=== PATIENT | male | born 1965 | race Caucasian/White ===

== ENCOUNTER → 2016-06-01 | Day surgery (SDC) | payer OTHER ==
--- NOTE | 2016-05-31 16:32 | Pre-Procedure Note/Attestation ---
Pre-Procedure Note/Attestation Complete Prior to Procedure Planned Procedure: bilateral Procedure Narrative: Septoplasty Submucous resection bilateral inferior turbinates. Indications for Procedure Pre-Operative Diagnosis: Nasal septal deviation Bilateral Hypertrophied inferior turbinates. Attestation I attest that I discussed the nature of the procedure; its benefits; risks and complications; and alternatives (and the risks and benefits of such alternatives ), prior to the procedure, with the patient (or the patient's legal employee's representative). I attest that, if there was a reasonable possibility of needing a blood transfusion, the patient (or the patient's legal employee's representative) was given the [facility] standardized written summary, pursuant to the [place] Blood Safety Act ([place] Health and Safety Code # 1645, as amended). 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 JORGE L OCAMPO May 31, 2016 16:32
--- NOTE | 2016-05-31 23:27 | Pre-op HX & Phy Repo 2 SIG ---
DATE OF ADMISSION: 06/01/2016 Head And Neck Surgery/ENT History And Physical DATE OF SCHEDULED SURGERY: 06/01/2016 in the morning. INDICATION FOR SURGERY: This is a 51-year-old male, with nasal airway obstruction. He has failed nasal steroids and antihistamines. He has a septal deviation and hypertrophied bilateral inferior turbinates. PREOPERATIVE DIAGNOSES: 1. Septal deviation. 2. Hypertrophied bilateral inferior turbinates. POSTOPERATIVE DIAGNOSES: 1. Septal deviation. 2. Hypertrophied bilateral inferior turbinates. FINDINGS: 1. Septal deviation. 2. Hypertrophied bilateral inferior turbinates. PAST SURGICAL HISTORY: Nasal surgery for fractured nose. He also had hand and leg surgery in the past. MEDICATIONS: None. ALLERGIES: No known drug allergies. SOCIAL HISTORY: . Two children. Denies alcohol and drugs. 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 PHYSICAL EXAMINATION: VITAL SIGNS: The patient is 70 inches and 162 pounds. Blood pressure on 05/27/2016 was 120/80, temperature 98.6 degrees, heart rate 74, and respiratory rate 13. HEENT: Head is normocephalic. Eyes, PERRLA and EOMI. Lips, tongue, pharynx, and neck are all normal. Note, he has a septal deviation to the right 85% and has bilateral hypertrophied inferior turbinates. HEART: Normal S1 and S2. No S3 or S4. NEUROLOGIC: Intact. GENITOURINARY: Not done as not indicated and is followed on a regular basis per his primary care doctor. ASSESSMENT: The patient has a septal deviation and bilateral hypertrophied inferior turbinates secondary to nasal fracture, which was corrected once before with some surgery, but the inside reverted back and necessitate further surgery as he has failed nasal steroids and antihistamines. PLAN: 1. Septoplasty. 2. Submucous resection of right and left inferior turbinates. Please note that there is a complete history and physical by his primary care doctor. This is an additional one. Liborio Lynch M.D. DR: AUDIE JOB#: [id number] CC:
[~2016-06-01] VITALS: Ht 177.8 cm; Wt 73.5 kg
[2016-06-01] VITALS (11 sets, daily range): BP systolic 119–167; BP diastolic 62–94
[~2016-06-01] MED LIST: Bupivacaine w/Epi 0.25% 30ml Vial INJ ONE; Cocaine 4% Vial TOPIC ONE; Dexamethasone 4mg/ml vial IVP ONE; HYDROmorphone 1mg/ml Carpuject SUBQ PRN; Hydromorphone 0.5mg/0.5ml inj IVP PRN; Ketorolac 30mg Inj IV PRN; Lacri-Lube Opth Oint 3.5gm ONE; Lidocaine 1% 10mg/ml/Epi 0.005mg/ml 30ml vial INJ ONE; Metoclopramide 10mg/2ml Inj IVP PRN; NKM; NS Irrig 1000ml IRRIG ONE; NS Irrig 1000ml ONE; Neo-Synephrine 0.5% Nasal Soln NASAL ONE; Norco 5mg/325mg tab ORAL PRN; Saline Nasal Gel (Ayr) NASAL ONE; Sterile Water Irrig 1000ml IRRIG ONE; fentaNYL 100 mcg/2 mL IV PRN
--- NOTE | 2016-06-01 07:55 | General Progress Note ---
Progress Note Progress Note Martin. asked me to order 2 mg Dilaudid. For some reason, he was unable to check out from pharmacy-he feels it will help the pt. post op. JORGE L OCAMPO Jun 01, 2016 07:55
--- NOTE | 2016-06-01 08:41 | Brief Operative Note ---
Immediate Post Operative Note Operative Note Chief Complaint: Nasal airway obsrtuction Pre-op Diagnosis: Nasal septal deviation Bilateral Hypertrophied inferior turbinates. Procedure: Septoplasty Bilateral submucous resection inferior turbinates. Post-op Diagnosis: same as pre-op Surgeon: Jorge L Ocampo Lens Molding Equipment Operator: none Additional Surgeons: none Anesthesiologist: German Specimen: none Complications: none Condition: stable Estimated Blood Loss: volume - 10cc Drains: none Packing: Stamberger nasal gel Implant(s) used?: No JORGE L OCAMPO Jun 01, 2016 08:41
--- NOTE | 2016-06-01 08:44 | Discharge Instructions ---
Discharge Instructions Discharge Instructions Follow up with: Dr. Ocampo next week-pt has appt already Diet: regular Resume Normal Activity?: No Activity: light activity Pneumonia Vaccine: pt refused vaccine Influenza Vaccine (Feb to Jul): pt refused vaccine Follow Up Orders pt has printed instructions Return to Work/School on: Jun 15, 2016 For Congestive Heart Failure Reminder Report to your physician any weight gain of 5 pounds or more in one week. JORGE L OCAMPO Jun 01, 2016 08:44
--- NOTE | 2016-06-01 08:44 | Immediate Post-Op Evaluation ---
Immediate Post-Op Evalulation Immediate Post-Op Evalulation Procedure: Septorhinoplasty Date of Evaluation: Jun 01, 2016 Time of Evaluation: 08:43 IV Fluids: 500 Blood Products: 0 Estimated Blood Loss: 5 Urinary Output: 0 Blood Pressure Systolic: 130 Blood Pressure Diastolic: 80 Pulse Rate: 66 Respiratory Rate: 20 O2 Sat by Pulse Oximetry: 100 Temperature (Fahrenheit): 98 Pain Score (1-10): 1 Nausea: No Vomiting: No Complications na Patient Status: awake Hydration Status: adequate Drug: Ancef 1G Given Within 1 Hr of Incision: Yes Time Given: 07:45 MARILYNN GAMEZ M.D. Jun 01, 2016 08:44
--- NOTE | 2016-06-01 08:46 | Anethesia Preoperative Eval ---
Anesthesia Pre-op PMH/ROS General Date of Evaluation: Jun 01, 2016 Time of Evaluation: 07:20 Anesthesiologist: edgar ASA Score: ASA 1 Mallampati Score Class I : Soft palate, uvula, fauces, pillars visible Class II: Soft palate, uvula, fauces visible Class III: Soft palate, base of uvula visible Class IV: Only hard plate visible Mallampati Classification: Class I Surgeon: Cris Diagnosis: Deviated Septum Surgical Procedure: Septorhinoplasty Anesthesia History: none Allergies: Coded Allergies: No Known Allergies (Unverified , 05/31/16) Medications: see eMAR Past Medical History Cardiovascular: Denies: CAD, HTN, MA, arrhythmia, other, valve dz Pulmonary: Denies: COPD, PITER, asthma, other Gastrointestinal/Genitourinary: Denies: CRI, ESRD, GERD, other Neurologic/Psychiatric: Denies: CVA, TIA, dementia, depression/anxiety, other Endocrine: Denies: DM, hypothyroidism, other, steroids HEENT: Denies: [place] (L), [place] (R), cataract (L), cataract (R), glaucoma, other Hematology/Immune: Denies: DVT, anemia, bleeding disorder, other Musculoskeletal/Integumentary: Denies: DDD, DJD, OA, RA, edema, other Anesthesia Pre-op Phys. Exam Physician Exam Last Vital Signs Date Time Temp Pulse Resp B/P Pulse Ox O2 Delivery O2 Flow Rate FiO2 06/01/16 06:58 97.5 50 20 144/73 99 Room Air Constitutional: NAD Neurologic: CN 2-12 intact Cardiovascular: RRR Respiratory: CTA Gastrointestinal: S/NT/ND Airway Exam Mallampati Score: Class II MARILYNN GAMEZ M.D. Jun 01, 2016 08:46
--- NOTE | 2016-06-01 09:50 | 48 Hour Post Anesthesia Eval ---
Post Anesthesia Evaluation Procedure: Septorhinoplasty Date of Evaluation: Jun 01, 2016 Time of Evaluation: 09:46 Blood Pressure Systolic: 120 0: 70 Pulse Rate: 75 Respiratory Rate: 20 Temperature (Fahrenheit): 98 O2 Sat by Pulse Oximetry: 99 Airway: patent Nausea: No Vomiting: No Pain Intensity: 1 Hydration Status: adequate Cardiopulmonary Status: sTABLE Mental Status/LOC: patient returned to baseline Follow-up Care/Observations: NA Post-Anesthesia Complications: NA Follow-up care needed: N/A MARILYNN GAMEZ M.D. Jun 01, 2016 09:50
--- NOTE | 2016-06-01 10:27 | Operative Note - Dictated ---
DATE OF OPERATION: 06/01/2016 SURGEON: Liborio Lynch M.D. HALL TENDER: None. ANESTHESIOLOGIST: Ezio Church M.D. Anesthesia: An 8 ML of 50:50 mixture 1% lidocaine and 1:100,000 epinephrine and Marcaine 0.5 to 1 to 200,000 epinephrine. Also 4 mL of 4% topical cocaine. INDICATION FOR SURGERY: The patient has had a nasal fracture. It was repaired, had septal deviation. Septal deviation part did not work, difficulty breathing on the right side. He is here for revision septoplasty and submucous resection, bilateral inferior turbinates. He is not here for any cosmetic work. PREOPERATIVE DIAGNOSES: Same. POSTOPERATIVE DIAGNOSES: Same. FINDINGS: Same. PROCEDURE: 1. Revision septoplasty. 2. Submucous resection right inferior turbinate. 3. Submucous section left inferior turbinate. TECHNIQUE: The patient was prepped and draped in usual manner under LMA general anesthesia. A time-out was performed. All agreed in the room. I injected with the aforementioned lidocaine, Marcaine, and epinephrine mixture submucosally in the inferior turbinates and septum. Additionally, 4 mL of 4% topical cocaine were placed on four nasal pledgets, two on either nostril, which were accounted for at the end the case. Initially, incision in the inferior turbinates bilaterally with a 15 blade past radiofrequency 1 after coating it with saline gel for 10 seconds x2 on either inferior turbinate. I then outfractured with a butter knife. I then made a small Alexander incision on the left hand side to approach the right hand side. I also used a small straight osteotome to fracture the vomer. Excess cartilage was removed with a 15 blade . The vomer was medialized on both sides with an Lucian forceps. I then proceeded to place a 4-0 plain suture x2 where the Alexander incision had been made. This was tied on the right side of the septum. At the end of the case, I did 4-0 lead butter knife 360 degrees without obstruction through the length of the nasal airway bilaterally. Sponge and needle count was correct. EBL 10 mL. Counts none. Drains none. The patient awake, alert, and stable in the operating room prior to transfer to the recovery room. Liborio Lynch M.D. DR: Teri JOB#: [id number] CC: NESS
== END | disposition home or self-care (01) ==
LOC: SUR 06:26
DX: J34.2 Deviated nasal septum (principal); J34.3 Hypertrophy of nasal turbinates; N52.9 Male erectile dysfunction, unspecified; J30.2 Other seasonal allergic rhinitis; G61.0 Guillain-Barre syndrome
CPT/HCPCS: 30140; 30520; J0360; J1100; J1170; 94003; 94150